=== PATIENT | female | born 1950 ===

== ENCOUNTER 2017-02-05 09:33 | Emergency (ER) | payer OTHER ==
[2017-02-05 09:34] VITALS: BMI 33.4
[2017-02-05 09:51] VITALS: RESP 16; TEMP 98.3
[2017-02-05] MEDS ORDERED: Pantoprazole 40 MG in Sodium Chloride 0.9% 100 ML IV STA (10:17)
[2017-02-05] MEDS ORDERED: Sodium Chloride 0.9% 1,000 ML IV STA (10:17)
[2017-02-05] MEDS ORDERED: Pantoprazole 40mg/100ml IVPB 40 MG/100 ML BAG IV STA (10:22)
--- NOTE | 2017-02-05 10:22 | ED PDOC ---
Arrival/HPI - General Chief Complaint: Abdominal Pain Time Seen by Provider: 02/05/17 10:11 Historian: Patient - History of Present Illness Narrative History of Present Illness (Text): 02/05/17 10:19 A 66 year old female presents to the emergency room for the evaluation of abdominal pain, nausea, and diarrhea for 1 week. Patient denies vomiting, chest pain, shortness of breath, headaches, dizziness, or any other complaints. Patient notes that she was a past smoker and denies a history of ETOH use. Time/Duration: 1 week Symptom Onset: Sudden Symptom Course: Unchanged Quality: Other (Pain) Severity Level: Mild Activities at Onset: Light Context: Home Associated Symptoms (Text): 02/05/17 10:38 Patient is here from [facility]. Daughter translates and complains of generalized abdominal pain along with nausea and diarrhea for approximately one week. She's had multiple CT scans of the abdomen and pelvis over the last several years. No fever. No genitourinary symptoms. No chest pain. No dyspnea. No back pain. Past Medical History - Provider Review Nursing Documentation Reviewed: Yes - Infectious Disease Hx of Infectious Diseases: None - Tetanus Immunization Tetanus Immunization: Unknown - Reproductive Menopause: Yes - Cardiac Hx Cardiac Disorders: Yes Hx Hypertension: Yes - Pulmonary Hx Respiratory Disorders: Yes Hx Asthma: Yes Hx Pneumonia: Yes - Neurological Hx Neurological Disorder: Yes Hx Dizziness: Yes - HEENT Hx HEENT Disorder: Yes Hx Cataracts: Yes (BILATERAL EYE) Other/Comment: HX: PTERYGUIM BOTH EYES - Endocrine/Metabolic Hx Endocrine Disorders: Yes Hx Diabetes Mellitus Type 2: Yes - Musculoskeletal/Rheumatological Hx Musculoskeletal Disorders: Yes Hx Arthritis: Yes - Gastrointestinal Hx Gall Bladder Disease: Yes - Surgical History Hx Appendectomy: Yes Hx Section: Yes Hx Cholecystectomy: Yes Hx Eye Surgery: Yes (PTERYGIUM REMOVED) Other/Comment: . 04/18/16: EXCISION PTERYGIUM LEFT EYE. - Anesthesia Hx Anesthesia: Yes Hx Anesthesia Reactions: No Hx Malignant Hyperthermia: No - Suicidal Assessment Feels Threatened In Home Enviroment: No Family/Social History - Physician Review Nursing Documentation Reviewed: Yes Family/Social History: No Known Family HX Smoking Status: Never Smoked Hx Alcohol Use: No Hx Substance Use Treatment: No Allergies/Home Meds Allergies/Adverse Reactions: Allergies No Known Allergies Allergy (Verified 02/05/17 09:51) Home Medications: Home Meds Medication Instructions Recorded Confirmed Gabapentin [Neurontin] 600 mg PO BID 04/06/16 02/05/17 Omeprazole [Prilosec] 40 mg PO DAILY 04/06/16 02/05/17 Zolpidem [Ambien] 5 mg PO HS 04/06/16 02/05/17 metFORMIN [glucOPHAGE] 850 mg PO BID 04/06/16 02/05/17 Review of Systems - Physician Review All systems were reviewed & negative as marked: Yes - Review of Systems Constitutional: absent: Fatigue, Fevers Respiratory: absent: SOB Cardiovascular: absent: Chest Pain Gastrointestinal: Abdominal Pain, Diarrhea, Nausea. absent: Constipation, Vomiting Genitourinary Female: absent: Dysuria, Frequency, Hematuria Neurological: absent: Headache, Dizziness, Focal Weakness Physical Exam Vital Signs Reviewed: Yes Vital Signs Temp Pulse Resp BP Pulse Ox 02/05/17 09:46 98.3 F 78 16 138/72 99 Temperature: Afebrile Blood Pressure: Normal Pulse: Regular Respiratory Rate: Normal Appearance: Positive for: Well-Appearing, Non-Toxic, Comfortable Pain Distress: None Mental Status: Positive for: other (Awake and alert) - Systems Exam Head: Present: Atraumatic, Normocephalic Pupils: Present: PERRL Extroacular Muscles: Present: EOMI Conjunctiva: Present: Normal Mouth: Present: Moist Mucous Membranes Pharnyx: No: ERYTHEMA, EXUDATE, TONSILS ENLARGED Neck: Present: Normal Range of Motion. No: MIDLINE TENDERNESS, Paraspinal Tenderness Respiratory/Chest: Present: Clear to Auscultation, Good Air Exchange. No: Respiratory Distress, Accessory Muscle Use Cardiovascular: Present: Regular Rate and Rhythm, Normal S1, S2. No: Murmurs Abdomen: Present: Tenderness (Mild generalized abdominal tenderness), Normal Bowel Sounds, Scars. No: Distention, Peritoneal Signs, Rebound, Guarding Back: No: CVA Tenderness, Midline Tenderness, Paraspinal Tenderness Upper Extremity: Present: Normal Inspection, Normal ROM. No: Tenderness, Swelling Lower Extremity: Present: Normal Inspection, Normal ROM. No: Tenderness, Swelling Neurological: Present: GCS=15, CN II-XII Intact, Speech Normal, Motor Func Grossly Intact Skin: Present: Warm, Dry, Normal Color. No: Rashes Psychiatric: Present: Alert Medical Decision Making ED Course and Treatment: 02/05/17 10:24 Impression: A 66 year old female with abdominal pain, nausea, and diarrhea. Mild generalized abdominal pain noted on PE. Plan: -- EKG -- Abdomen & Pelvis CT -- Chest X-ray -- Labs -- Zofran & Protonix -- Reassess and disposition Progress Notes: 02/05/17 11:42 Chest 1 view shows no infiltrate effusion or cardiomegaly - Lab Interpretations Lab Results: 02/05/17 10:05 02/05/17 10:05 Lab Results 02/05/17 10:30: Urine Color Yellow, Urine Appearance Clear, Urine pH 7.5, Ur Specific [place] 1.025, Urine Protein Negative, Urine Glucose (UA) Negative, Urine Ketones Negative, Urine Blood Trace-intact H, Urine Nitrate Negative, Urine Bilirubin Negative, Urine Urobilinogen 0.2, Ur Leukocyte Esterase Negative , Urine RBC 1 - 3, Urine WBC 2 - 5, Ur Epithelial Cells 6 - 8, Urine Bacteria Few 02/05/17 10:05: Sodium 139, Potassium 4.3, Chloride 99, Carbon Dioxide 27, Anion Gap 17, BUN 15, Creatinine 0.7, Est GFR ( Amer) > 60, Est GFR (Non- Af Amer) > 60, Random Glucose 122 H, Calcium 9.3, Total Bilirubin 0.8, AST 30, ALT 30, Alkaline Phosphatase 130, Lactate Dehydrogenase 361, Total Creatine Kinase 73, Troponin I < 0.01, Total Protein 8.0, Albumin 4.2, Globulin 3.8, Albumin/Globulin Ratio 1.1, Amylase 75, Lipase 85 02/05/17 10:05: PT 10.8, INR 1.00, APTT 27.5 02/05/17 10:05: WBC 11.3 H, RBC 4.10, Hgb 12.0, Hct 36.0, MCV 87.8, MCH 29.3, MCHC 33.3, RDW 13.9, Plt Count 380, MPV 9.0, Gran % 66.3, Lymph % (Auto) 24.8, [place] % (Auto) 4.2, Eos % (Auto) 4.0, Baso % (Auto) 0.7, Gran # 7.48 H, Lymph # 2.8, [place] # 0.5, Eos # 0.5, Baso # 0.08 I have reviewed the lab results: Yes - RAD Interpretation Radiology Orders: 02/05/17 10:17 ABD & PELVIS W/O PO OR IV CONT [CT] Stat 02/05/17 10:18 CHEST PORTABLE [RAD] Stat CT scan of the abdomen and pelvis is read by the radiologist shows no acute findings Senior Net Architect: Radiologist - Medication Orders Current Medication Orders: Sodium Chloride (Sodium Chloride 0.9%) 1,000 mls @ 100 mls/hr IV .Q10H STA Stop: 02/05/17 20:16 Last Admin: 02/05/17 10:45 Dose: 100 mls/hr Discontinued Medications Pantoprazole Sodium 40 mg/ (Sodium Chloride) 100 mls @ 400 mls/hr IV STAT STA Stop: 02/05/17 10:31 Last Admin: 02/05/17 11:15 Dose: Pantoprazole Sodium (Protonix 40mg Ivpb) 40 mg in 100 mls @ 400 mls/hr IV STAT STA Stop: 02/05/17 10:31 Last Admin: 02/05/17 10:45 Dose: 400 mls/hr Ondansetron HCl (Zofran Inj) 4 mg IVP STAT STA Stop: 02/05/17 10:18 Last Admin: 02/05/17 10:45 Dose: 4 mg - Scribe Statement The provider has reviewed the documentation as recorded by the Neela Soto Provider Scribe Attestation: All medical record entries made by the José Miguelibkaran were at my direction and personally dictated by me. I have reviewed the chart and agree that the record accurately reflects my personal performance of the history, physical exam, medical decision making, and the department course for this patient. I have also personally directed, reviewed, and agree with the discharge instructions and disposition. Disposition/Present on Arrival - Present on Arrival Any Indicators Present on Arrival: No History of DVT/PE: No History of Uncontrolled Diabetes: No Urinary Catheter: No History of Decub. Ulcer: No History Surgical Site Infection Following: None - Disposition Have Diagnosis and Disposition been Completed?: Yes Diagnosis: Gastroenteritis, Abdominal pain, Diarrhea, Nausea Disposition: HOME/ ROUTINE Disposition Time: 11:43 Patient Plan: Discharge Condition: GOOD Discharge Instructions (ExitCare): Acute Abdominal Pain (ED), Acute Diarrhea ( ED) Additional Instructions: Symptomatic treatment. Follow-up in the clinic. Follow up in the ER as needed. Prescriptions: Ondansetron [Zofran Odt] 4 mg SL Q6 #20 odt Referrals: [facility] [Outside] - Follow up with primary
[2017-02-05 10:34] LABS: ADD MANUAL DIFF? NO
[2017-02-05 10:40] LABS: BASO # 0.08 K/mm3 (0.0-2.0); BASO % 0.7 % (0.0-3.0); EOS # 0.5 (0.0-0.7); GRAN # 7.48 (1.4-6.5); GRAN % 66.3 % (50.0-68.0); LYMPH # 2.8 (1.2-3.4); LYMPH % 24.8 % (22.0-35.0); MEAN CELL VOLUME 87.8 fL (80.0-105.0); MEAN CORPUSCULAR HEMOGLOBIN 29.3 pg (25.0-35.0); MEAN CORPUSCULAR HGB CONC 33.3 g/dl (31.0-37.0); MONO # 0.5 (0.1-0.6); MONO % 4.2 % (1.0-6.0); PLATELET COUNT 380 10^3/uL (120.0-450.0); RED CELL DISTRIBUTION WIDTH 13.9 % (11.5-14.5); WHITE BLOOD COUNT 11.3 10^3/ul (4.5-11.0)
[2017-02-05 10:46] LABS: PH,URINE 7.5 (4.7-8.0); URINE BILIRUBIN NEGATIVE (NEGATIVE); URINE BLOOD TRACE-INTACT (NEGATIVE); URINE GLUCOSE (UA) NEGATIVE (NEGATIVE); URINE KETONE NEGATIVE (NEGATIVE); URINE LEUKOCYTE ESTERASE NEGATIVE Leu/uL (NEGATIVE); URINE PROTEIN NEGATIVE mg/dL (<30 mg/dL); URINE UROBILINOGEN 0.2 E.U./dL (<1 E.U./dL)
[2017-02-05 10:50] LABS: PARTIAL THROMBOPLASTIN TIME 27.5 Seconds (23.7-30.8)
[2017-02-05 10:53] LABS: ALB/GLOB RATIO 1.1 (1.1-1.8); ALKALINE PHOSPHATASE 130 U/L (38-133); ALT/SGPT 30 U/L (7-56); AMYLASE 75 U/L (35-125); AST/SGOT 30 U/L (15-39); BILIRUBIN,TOTAL 0.8 mg/dL (0.2-1.3); BLOOD UREA NITROGEN 15 mg/dL (7-21); CALCIUM 9.3 mg/dL (8.4-10.5); CARBON DIOXIDE 27 mmol/L (21-33); CHLORIDE 99 mmol/L (98-107); GFR AFRICAN-AMERICAN > 60; GLUCOSE,RANDOM 122 mg/dL (70-110); LIPASE 85 U/L (23-300); POTASSIUM 4.3 mmol/L (3.6-5.0); SODIUM 139 mmol/L (132-148)
[2017-02-05 10:56] LABS: URINE COLOR YELLOW (YELLOW)
[2017-02-05 10:57] LABS: URINE APPEARANCE CLEAR (CLEAR)
[2017-02-05 10:58] LABS: URINE BACTERIA FEW (NEG)
[2017-02-05 11:09] LABS: TROPONIN I < 0.01 ng/mL
--- NOTE | 2017-02-05 11:34 | CT ---
PROCEDURE: CT Abdomen and Pelvis without intravenous contrast HISTORY: pain COMPARISON: 12/01/2015 TECHNIQUE: Without contrast.. Contrast Dose: 0 Radiation dose: Total exam DLP = 760.22 mGy-cm. This CT exam was performed using one or more of the following dose reduction techniques: Automated exposure control, adjustment of the mA and/or kV according to patient size, and/or use of iterative reconstruction technique. FINDINGS: LOWER THORAX: Unremarkable. LIVER: Unremarkable. No gross lesion or ductal dilatation. GALLBLADDER AND BILE DUCTS: Status post cholecystectomy. Mild dilatation of common bile duct to 9 mm diameter, consistent with prior cholecystectomy. PANCREAS: Unremarkable. No gross lesion or ductal dilatation. SPLEEN: Unremarkable. ADRENALS: Unremarkable. No mass. KIDNEYS AND URETERS: Unremarkable. No hydronephrosis. No solid mass. VASCULATURE: Unremarkable. No aortic aneurysm. BOWEL: Mild sigmoid diverticulosis without evidence diverticulitis. No other abnormal bowel loops. No bowel obstruction. APPENDIX: Appendix not positively identified. No secondary findings to suggest acute appendicitis. PERITONEUM: Unremarkable. No free fluid. No free air. LYMPH NODES: Unremarkable. No enlarged lymph nodes. BLADDER: Poorly distended. No gross abnormality. REPRODUCTIVE: Uterus significant for several coarse calcifications consistent with calcified degenerated fibroids. BONES: No acute fracture. Grade 1 anterolisthesis at L4-5 without evidence of spondylolysis. OTHER FINDINGS: None. IMPRESSION: No acute abnormality. Status post cholecystectomy. Additional minor findings as above.
[2017-02-05 12:16] VITALS: BP 125/52; PULSE 76; O2SAT 97
--- NOTE | 2017-02-05 12:30 | RAD ---
HISTORY: ap COMPARISON: 06/18/2015 FINDINGS: LUNGS: No active pulmonary disease. PLEURA: No significant pleural effusion identified, no pneumothorax apparent. CARDIOVASCULAR: Normal. OSSEOUS STRUCTURES: No significant abnormalities. VISUALIZED UPPER ABDOMEN: Normal. OTHER FINDINGS: None. IMPRESSION: No active disease.
== END 2017-02-05 12:16 | disposition home or self-care (01) ==
LOC: ED 09:33
DX: K52.9 Noninfective gastroenteritis and colitis, unspecified (principal); I10 Essential (primary) hypertension; E11.9 Type 2 diabetes mellitus without complications
CPT/HCPCS: 71010; 74176; 80053; 81001; 82150; 82550; 83615; 83690; 84484; 85025; 85610; 85730; 96374; 99283; C9113; J2405; J7040